=== PATIENT | female | born 1985 | race Two or more races ===

== ENCOUNTER 2019-04-19 18:21 | Emergency (ER) | payer MEDICAID ==
[~2019-04-19] VITALS: Ht 160 cm; Wt 81.6 kg
[~2019-04-19 18:21] MED LIST: METF-370 PO; PREN27TA7 PO
[2019-04-19 18:35] VITALS: BP 133/94
== END 2019-04-19 18:37 ==
LOC: ER 18:21
DX: F10.129 Alcohol abuse with intoxication, unspecified (principal); Y90.0 Blood alcohol level of less than 20 mg/100 ml; V43.52XA Car driver injured in collision with other type car in traffic accident, initial encounter; Y93.89 Activity, other specified; Y92.89 Other specified places as the place of occurrence of the external cause; Y99.8 Other external cause status